=== PATIENT | female | born 1930 ===

== ENCOUNTER 2016-12-16 12:50 | Emergency (ER) | payer MEDICARE, MEDICAID ==
[2016-12-16 13:02] VITALS: BP 145/57; PULSE 68; RESP 18; TEMP 98.6; O2SAT 96; BMI 23.1
--- NOTE | 2016-12-16 13:31 | ED PDOC ---
Arrival/HPI - General Chief Complaint: Trauma Time Seen by Provider: 12/16/16 12:59 Historian: Patient, Family (Niece translates), Patient Transition Specialist - History of Present Illness Narrative History of Present Illness (Text): 12/16/16 13:29 A 86 year old female, whose past medical history includes near syncope, UTI, incisional hernia, and contusion of rib on right side, presents to the emergency department for falling in her bathroom 3 days ago. The patient lives alone and is accompanied by her niece who translates for her. The patient states she injured her left forearm and back. Since the fall she has been developing pain and a cough. The patient denies any chest pain, palpitations, nausea, vomiting, dysuria, or any other complaints at this time. Time/Duration: < week (x 3 days ) Symptom Onset: Sudden Symptom Course: Unchanged, Worsening Severity Level: Mild Activities at Onset: Light Context: Home Associated Symptoms (Text): 12/16/16 14:27 Mechanical fall in the bathroom 3 days ago with an injury to her left posterior lateral ribs and left forearm. No head trauma. No neck pain. No chest pain or dyspnea. No abdominal pain nausea or vomiting. No other extremity trauma. Past Medical History - Provider Review Nursing Documentation Reviewed: Yes - Infectious Disease Hx of Infectious Diseases: None - Cardiac Hx Cardiac Disorders: Yes Hx Hypertension: Yes Hx Pacemaker: Yes - Pulmonary Hx Respiratory Disorders: No - Neurological Hx Seizures: Yes - HEENT Hx HEENT Disorder: Yes Other/Comment: as per patient " surgery on R eye" - Renal Hx Renal Disorder: Yes Hx Kidney Stones: Yes - Endocrine/Metabolic Hx Endocrine Disorders: No - Hematological/Oncological Hx Blood Disorders: No - Integumentary Hx Dermatological Disorder: No - Musculoskeletal/Rheumatological Hx Arthritis: Yes Hx Gout: Yes Hx Osteoporosis: Yes Hx Rheumatoid Arthritis: Yes - Gastrointestinal Hx Gastrointestinal Disorders: No - Genitourinary/Gynecological Hx Genitourinary Disorders: No - Psychiatric Hx Psychophysiologic Disorder: No Hx Substance Use: No - Surgical History Hx Cholecystectomy: Yes - Anesthesia Hx Anesthesia: Yes Hx Anesthesia Reactions: Yes (nausea, vomiting) Hx Malignant Hyperthermia: No - Suicidal Assessment Feels Threatened In Home Enviroment: No Family/Social History - Physician Review Nursing Documentation Reviewed: Yes Family/Social History: No Known Family HX Smoking Status: Never Smoked Hx Alcohol Use: No Hx Substance Use: No Allergies/Home Meds Allergies/Adverse Reactions: Allergies No Known Allergies Allergy (Verified 12/16/16 13:02) Home Medications: Home Meds Medication Instructions Recorded Confirmed Clonazepam 0.5 mg PO BID 03/28/14 12/16/16 Zolpidem Tartrate [Zolpidem] 10 mg PO HS 03/28/14 12/16/16 Gabapentin 200 mg PO DAILY 01/29/15 12/16/16 Ibuprofen [Advil] 400 mg PO Q6 PRN 12/04/16 12/16/16 Allopurinol [Zyloprim] 100 mg PO DAILY 12/16/16 12/16/16 Dexlansoprazole [Dexilant] 60 mg PO DAILY 12/16/16 12/16/16 Review of Systems - Physician Review All systems were reviewed & negative as marked: Yes - Review of Systems Constitutional: Fatigue. absent: Fevers Respiratory: Cough. absent: SOB Cardiovascular: absent: Chest Pain Gastrointestinal: absent: Abdominal Pain, Nausea, Vomiting Genitourinary Female: absent: Dysuria Musculoskeletal: Other (injured left forearm and back from a fall. ) Neurological: absent: Headache, Dizziness Physical Exam Vital Signs Reviewed: Yes Vital Signs Temp Pulse Resp BP Pulse Ox 12/16/16 13:01 98.6 F 68 18 145/57 L 96 Temperature: Afebrile Blood Pressure: Normal Pulse: Regular Respiratory Rate: Normal Appearance: Positive for: Non-Toxic, Cachectic Pain Distress: None Mental Status: Positive for: other (Awake and alert) - Systems Exam Head: Present: Atraumatic, Normocephalic Pupils: Present: PERRL Extroacular Muscles: Present: EOMI Conjunctiva: Present: Normal Mouth: Present: Moist Mucous Membranes Neck: Present: Normal Range of Motion. No: MIDLINE TENDERNESS, Paraspinal Tenderness Respiratory/Chest: Present: Good Air Exchange, Decreased Breath Sounds, Rhonchi (left sided ), Tender to Palpation (Left posterior lateral rib tenderness with no crepitus and no skin changes). No: Respiratory Distress, Accessory Muscle Use Cardiovascular: Present: Regular Rate and Rhythm, Normal S1, S2. No: Murmurs Abdomen: Present: Normal Bowel Sounds. No: Tenderness, Distention, Peritoneal Signs Back: Present: Normal Inspection. No: CVA Tenderness, Midline Tenderness, Paraspinal Tenderness, Pain with Leg Raise Upper Extremity: Present: Normal ROM, Tenderness (left posterior lateral rib tenderness; no crepitus), Other (left forearm has superficial abrasion ulnarly) . No: Edema, Erythema Lower Extremity: Present: Normal Inspection. No: Edema Neurological: Present: GCS=15, CN II-XII Intact, Speech Normal, Motor Func Grossly Intact Skin: Present: Warm, Dry, Normal Color. No: Rashes Psychiatric: Present: Alert, Oriented x 3, Normal Insight, Normal Concentration Medical Decision Making ED Course and Treatment: 12/16/16 13:35 Impression: A 86 year old female with left forearm and back pain. Differential Diagnosis included but are not limited to: Plan: -- Chest X-ray -- Radiology: Forearm left -- Reassess and disposition Progress Notes: - RAD Interpretation Radiology Orders: 12/16/16 13:05 FOREARM LEFT [RAD] Stat RIBS LEFT & PA CHEST [RAD] Stat Left ribs and chest show no infiltrate effusion cardiomegaly pneumothorax fracture or dislocation. There is a pacemaker present. Left forearm shows no fracture or dislocation. Vp Lab: ED Physician - Scribe Statement The provider has reviewed the documentation as recorded by the Scribe Damaris Leach Provider Scribe Attestation: All medical record entries made by the Scribe were at my direction and personally dictated by me. I have reviewed the chart and agree that the record accurately reflects my personal performance of the history, physical exam, medical decision making, and the department course for this patient. I have also personally directed, reviewed, and agree with the discharge instructions and disposition. Disposition/Present on Arrival - Present on Arrival Any Indicators Present on Arrival: No History of DVT/PE: No History of Uncontrolled Diabetes: No Urinary Catheter: No History of Decub. Ulcer: No History Surgical Site Infection Following: None - Disposition Have Diagnosis and Disposition been Completed?: Yes Diagnosis: Chest wall contusion, Forearm abrasion Disposition: HOME/ ROUTINE Disposition Time: 14:31 Patient Plan: Discharge Condition: GOOD Discharge Instructions (ExitCare): Contusion in Adults (ED), Abrasion (ED), How to Use an Incentive Spirometer (ED) Prescriptions: Tramadol HCl [Ultram] 50 mg PO Q6 PRN #15 tab PRN Reason: Pain Forms: [employer] ([place])
--- NOTE | 2016-12-16 14:32 | RAD ---
PROCEDURE: Radiographs of the Chest and Left Ribs. HISTORY: trauma COMPARISON: 05/07/2015. TECHNIQUE: Frontal radiograph of the chest and multiple oblique radiographs of the left ribs were obtained. FINDINGS: LEFT RIBS: Evaluation somewhat limited by the presence of a permanent pacemaker module. There are old healed fractures of the left 4th and 5th ribs. There is no acute rib fracture identified. LUNGS: Clear. PLEURA: No pneumothorax or pleural fluid. CARDIOVASCULAR: Normal size heart. Permanent pacemaker noted. Question is raised as to possible hiatal hernia. OTHER FINDINGS: None. IMPRESSION: No acute rib fracture identified. Old fractures left 4th and 5th posterior ribs. Permanent pacemaker. Possible hiatal hernia.
--- NOTE | 2016-12-16 14:34 | RAD ---
PROCEDURE: Radiographs of the Left Forearm HISTORY: trauma COMPARISON: None available. TECHNIQUE: Frontal and lateral views obtained. FINDINGS: BONES: No fracture or destructive lesion. JOINT SPACES: Unremarkable. OTHER FINDINGS: None. IMPRESSION: Unremarkable radiographs of the left forearm.
== END 2016-12-16 14:49 | disposition home or self-care (01) ==
LOC: ED 12:50
DX: S20.212A Contusion of left front wall of thorax, initial encounter (principal); S50.812A Abrasion of left forearm, initial encounter; W18.30XA Fall on same level, unspecified, initial encounter; Y93.E8 Activity, other personal hygiene; Y92.002 Bathroom of unspecified non-institutional (private) residence as the place of occurrence of the external cause

== ENCOUNTER 2017-12-30 09:07 | Emergency (ER) | payer MEDICARE, MEDICAID ==
[2017-12-30 09:17] VITALS: BMI 24.7
--- NOTE | 2017-12-30 09:29 | ED PDOC ---
Arrival/HPI - General Chief Complaint: Trauma Time Seen by Provider: 12/30/17 09:10 Historian: Patient, Director External Communications - History of Present Illness Narrative History of Present Illness (Text): 12/30/17 09:29 87 year old Macanese speaking female, whose past medical history includes pacemaker, CKD, Seizures, Arthritis, hypertension, Cholecystectomy, near syncope, UTI, incisional hernia, and contusion of rib on right side, presents to the emergency department s/p trip and fall 6 days ago. Patient reports she tripped on her own feet and fell injuring her forehead and left eye. Patient denies any loss of consciousness and denies being on blood thinners. Patient has been able to walk without any difficulty. Patient just wanted to be tested and evaluated to make sure she is fine. Patient denies visual changes, fever, chills, chest pain, shortness of breath, nausea, vomiting, diarrhea, urinary symptoms, back pain, neck pain, headache, dizziness, or any other complaints. Director External Communications: KRYS Aparicio PMD: Dr. Kinjal Love 12/30/17 15:23 Time/Duration: Other (6 days) Symptom Onset: Sudden Symptom Course: Unchanged Activities at Onset: Light Context: Tripped Past Medical History - Provider Review Nursing Documentation Reviewed: Yes - Infectious Disease Hx of Infectious Diseases: None - Cardiac Hx Cardiac Disorders: Yes Hx Hypertension: Yes Hx Pacemaker: Yes Other/Comment: + pacemaker - Pulmonary Hx Respiratory Disorders: No - Neurological Hx Seizures: Yes - HEENT Hx HEENT Disorder: Yes Other/Comment: as per patient " surgery on R eye" - Renal Hx Renal Disorder: Yes Hx Kidney Stones: Yes - Endocrine/Metabolic Hx Endocrine Disorders: No - Hematological/Oncological Hx Blood Disorders: No - Integumentary Hx Dermatological Disorder: No - Musculoskeletal/Rheumatological Hx Arthritis: Yes Hx Gout: Yes Hx Osteoporosis: Yes Hx Rheumatoid Arthritis: Yes - Gastrointestinal Hx Gastrointestinal Disorders: No - Genitourinary/Gynecological Hx Genitourinary Disorders: No - Psychiatric Hx Psychophysiologic Disorder: No Hx Substance Use: No - Surgical History Hx Cholecystectomy: Yes Other/Comment: pacemaker - Anesthesia Hx Anesthesia: Yes Hx Anesthesia Reactions: Yes (nausea, vomiting) Hx Malignant Hyperthermia: No - Suicidal Assessment Feels Threatened In Home Enviroment: No Family/Social History - Physician Review Nursing Documentation Reviewed: Yes Family/Social History: No Known Family HX Smoking Status: Never Smoked Hx Alcohol Use: No Hx Substance Use: No Allergies/Home Meds Allergies/Adverse Reactions: Allergies No Known Allergies Allergy (Verified 12/16/16 13:02) Home Medications: Home Meds Medication Instructions Recorded Confirmed RX: Clonazepam 0.5 mg PO HS PRN 03/28/14 12/30/17 RX: Gabapentin 200 mg PO DAILY 01/29/15 12/30/17 RX: Allopurinol [Zyloprim] 100 mg PO DAILY 12/16/16 12/30/17 Fluticasone/Salmeterol 250/50 1 puff IH DAILY 12/30/17 12/30/17 [Advair Diskus 250/50] Memantine [Namenda] 1 tab PO DAILY 12/30/17 12/30/17 Montelukast [Singulair] 1 tab PO DAILY 12/30/17 12/30/17 RX: Famotidine [Pepcid] 1 tab PO DAILY 12/30/17 12/30/17 RX: amLODIPine [Norvasc] 5 mg PO DAILY 12/30/17 12/30/17 Review of Systems - Physician Review All systems were reviewed & negative as marked: Yes - Review of Systems Constitutional: absent: Fevers, Other (Chills) Eyes: absent: Vision Changes Respiratory: absent: SOB Cardiovascular: absent: Chest Pain Gastrointestinal: absent: Abdominal Pain, Diarrhea, Nausea, Vomiting Genitourinary Female: absent: Dysuria, Frequency, Hematuria Musculoskeletal: Other (forehead and left eye pain). absent: Back Pain, Neck Pain Neurological: absent: Headache, Dizziness Physical Exam Vital Signs Reviewed: Yes Temperature: Afebrile Blood Pressure: Normal Pulse: Regular Respiratory Rate: Normal Appearance: Positive for: Well-Appearing, Non-Toxic, Comfortable Pain Distress: None Mental Status: Positive for: Alert and Oriented X 3 - Systems Exam Head: Present: Atraumatic, Normocephalic, Tenderness (tender to palpation to the left eyebrow periorbital ridge), Contusion (Left periorbital contusion to the left eye). No: Swelling, Other (No step off) Pupils: Present: PERRL Extroacular Muscles: Present: EOMI Conjunctiva: Present: Normal Mouth: Present: Moist Mucous Membranes Neck: Present: Normal Range of Motion Respiratory/Chest: Present: Clear to Auscultation, Good Air Exchange. No: Respiratory Distress, Accessory Muscle Use Cardiovascular: Present: Regular Rate and Rhythm, Normal S1, S2. No: Murmurs Abdomen: No: Tenderness, Distention, Peritoneal Signs Back: Present: Normal Inspection Upper Extremity: Present: Normal Inspection. No: Cyanosis, Edema Lower Extremity: Present: Normal Inspection. No: Edema Neurological: Present: GCS=15, CN II-XII Intact, Speech Normal, Motor Func Grossly Intact, Normal Sensory Function, Gait Normal Skin: Present: Warm, Dry, Normal Color. No: Rashes Psychiatric: Present: Alert, Oriented x 3, Normal Insight, Normal Concentration Medical Decision Making ED Course and Treatment: 12/30/17 09:29 Impression: 87 year old female presents complaining of forehead and left eye discomfort s/p trip and fall 6 days ago. Plan: -- CT Head w/o Contrast -- CT Maxillofacial w/o contrast -- Reassess and disposition Prior Visits: Notes and results from previous visits were reviewed. Progress Notes: PROCEDURE: CT MAXILLOFACIAL BONES WITHOUT CONTRAST Dictator : Diego Rea MD Report Date : 12/30/2017 10:53:04 IMPRESSION: No evidence of fracture PROCEDURE: CT HEAD WITHOUT CONTRAST. Dictator : Diego Rea MD Report Date : 12/30/2017 10:50:28 IMPRESSION: No acute findings - Scribe Statement The provider has reviewed the documentation as recorded by the Scribe Chantel Dickens Provider Scribe Attestation: All medical record entries made by the Scribe were at my direction and personally dictated by me. I have reviewed the chart and agree that the record accurately reflects my personal performance of the history, physical exam, medical decision making, and the department course for this patient. I have also personally directed, reviewed, and agree with the discharge instructions and disposition.\\ Disposition/Present on Arrival - Present on Arrival Any Indicators Present on Arrival: No History of DVT/PE: No History of Uncontrolled Diabetes: No Urinary Catheter: No History of Decub. Ulcer: No History Surgical Site Infection Following: None - Disposition Have Diagnosis and Disposition been Completed?: Yes Diagnosis: Fall from slip, trip, or stumble, Periorbital contusion of left eye Disposition: HOME/ ROUTINE Disposition Time: 11:06 Patient Plan: Discharge Condition: GOOD Discharge Instructions (ExitCare): Preventing Falls in the Older Adult, Eye Contusion (DC) Print Language: ROMANIAN Additional Instructions: CARLYLE CRUMP, thank you for letting us take care of you today. Your provider was Veronica May MD and you were treated for FALL. The emergency medical care you received today was directed at your acute symptoms. If you were prescribed any medication, please fill it and take as directed. It may take several days for your symptoms to resolve. Return to the Emergency Department if your symptoms worsen, do not improve, or if you have any other problems. Tiene que hacer sridevi victor manuel con kendrick doctor en 1-2 moore. Vuelva a la emergencia si se siente peor. Please contact your doctor in 1-2 days for a follow up appointment. Bring any paperwork you were given at discharge with you along with any medications you are taking to your follow up visit. Our treatment cannot replace ongoing medical care by a primary care provider outside of the emergency department. Thank you for allowing the [facility] team to be part of your care today. Referrals: Kate Mccarthy MD [Family Provider] - Follow up with primary Forms: [employer] (Estonian), [facility] (Macanese)
[2017-12-30 09:32] VITALS: RESP 18; TEMP 97.8
--- NOTE | 2017-12-30 10:54 | CT ---
Date of service: 12/30/2017 PROCEDURE: CT HEAD WITHOUT CONTRAST. HISTORY: fall head trauma COMPARISON: None available. TECHNIQUE: Axial computed tomography images were obtained through the head/brain without intravenous contrast. Radiation dose: Total exam DLP = 754 mGy-cm. This CT exam was performed using one or more of the following dose reduction techniques: Automated exposure control, adjustment of the mA and/or kV according to patient size, and/or use of iterative reconstruction technique. FINDINGS: HEMORRHAGE: No intracranial hemorrhage. BRAIN: No mass effect or edema. No atrophy or chronic microvascular ischemic changes. VENTRICLES: Unremarkable. No hydrocephalus. CALVARIUM: Unremarkable. PARANASAL SINUSES: Unremarkable as visualized. No significant inflammatory changes. MASTOID AIR CELLS: Unremarkable as visualized. No inflammatory changes. OTHER FINDINGS: None. IMPRESSION: No acute findings
--- NOTE | 2017-12-30 10:56 | CT ---
Date of service: 12/30/2017 PROCEDURE: CT MAXILLOFACIAL BONES WITHOUT CONTRAST HISTORY: facial trauma COMPARISON: None available. TECHNIQUE: Contiguous axial CT images of the maxillofacial bones were obtained. Coronal and sagittal reformats were generated. Radiation dose: Total exam DLP = 673.47 mGy-cm. This CT exam was performed using one or more of the following dose reduction techniques: Automated exposure control, adjustment of the mA and/or kV according to patient size, and/or use of iterative reconstruction technique. FINDINGS: NASAL BONES: Unremarkable. ORBITS: Unremarkable. PARANASAL SINUSES/ MASTOIDS: Clear. MAXILLA: Unremarkable. MANDIBLE/ TEMPOROMANDIBULAR JOINTS: Unremarkable. SKULL BASE: Unremarkable. TEMPORAL BONES: Middle ears and mastoid grossly unremarkable. OTHER FINDINGS: None. IMPRESSION: No evidence of fracture
[2017-12-30 11:04] VITALS: BP 121/69; PULSE 64; O2SAT 98
== END 2017-12-30 11:32 | disposition home or self-care (01) ==
LOC: ED 09:07
DX: S05.12XA Contusion of eyeball and orbital tissues, left eye, initial encounter (principal); W01.0XXA Fall on same level from slipping, tripping and stumbling without subsequent striking against object, initial encounter; Y92.9 Unspecified place or not applicable

== ENCOUNTER 2018-08-11 10:26 | Emergency (ER) | payer MEDICAID, MEDICARE ==
[2018-08-11 10:27] VITALS: BMI 24.7
--- NOTE | 2018-08-11 12:32 | ED PDOC ---
Arrival/HPI - General Chief Complaint: Fever Time Seen by Provider: 08/11/18 11:20 Historian: Patient - History of Present Illness Narrative History of Present Illness (Text): 08/11/18 12:36 A 87 year old female, whose past medical history includes hypertension, seizure disorder, arthritis, rheumatoid arthritis, and osteoporosis, presents to the emergency department complaining of non-productive cough and left-side facial pain. Patient reports taking excedrin, however had no relief of symptoms. Notes experiencing subjective fever yesterday, but no cough, and throat pain. Patient denies any other complaints at this time. Also, patient mentions returning to the [facility] after a 2-week trip in [place]. PMD: Dr. Kate Mccarthy Past Medical History - Provider Review Nursing Documentation Reviewed: Yes - Infectious Disease Hx of Infectious Diseases: None - Cardiac Hx Cardiac Disorders: Yes Hx Hypertension: Yes Hx Pacemaker: Yes Other/Comment: + pacemaker - Pulmonary Hx Respiratory Disorders: No - Neurological Hx Seizures: Yes - HEENT Hx HEENT Disorder: Yes Other/Comment: as per patient " surgery on R eye" - Renal Hx Renal Disorder: Yes Hx Kidney Stones: Yes - Endocrine/Metabolic Hx Endocrine Disorders: No - Hematological/Oncological Hx Blood Disorders: No - Integumentary Hx Dermatological Disorder: No - Musculoskeletal/Rheumatological Hx Arthritis: Yes Hx Gout: Yes Hx Osteoporosis: Yes Hx Rheumatoid Arthritis: Yes - Gastrointestinal Hx Gastrointestinal Disorders: No - Genitourinary/Gynecological Hx Genitourinary Disorders: No - Psychiatric Hx Psychophysiologic Disorder: No Hx Substance Use: No - Surgical History Hx Cholecystectomy: Yes Other/Comment: pacemaker - Anesthesia Hx Anesthesia: Yes Hx Anesthesia Reactions: Yes (nausea, vomiting) Hx Malignant Hyperthermia: No - Suicidal Assessment Feels Threatened In Home Enviroment: No Family/Social History - Physician Review Nursing Documentation Reviewed: Yes Family/Social History: No Known Family HX Smoking Status: Never Smoked Hx Alcohol Use: No Hx Substance Use: No Allergies/Home Meds Allergies/Adverse Reactions: Allergies No Known Allergies Allergy (Verified 08/11/18 11:17) Home Medications: Home Meds Medication Instructions Recorded Confirmed Clonazepam 0.5 mg PO HS PRN 03/28/14 12/30/17 Gabapentin 200 mg PO DAILY 01/29/15 12/30/17 Allopurinol [Zyloprim] 100 mg PO DAILY 12/16/16 12/30/17 Famotidine [Pepcid] 1 tab PO DAILY 12/30/17 12/30/17 Fluticasone/Salmeterol 250/50 1 puff IH DAILY 12/30/17 12/30/17 [Advair Diskus 250/50] Memantine [Namenda] 1 tab PO DAILY 12/30/17 12/30/17 Montelukast [Singulair] 1 tab PO DAILY 12/30/17 12/30/17 amLODIPine [Norvasc] 5 mg PO DAILY 12/30/17 12/30/17 Review of Systems - Physician Review All systems were reviewed & negative as marked: Yes - Review of Systems Constitutional: Fevers (subjective fever yesterday) ENT: Other (throat pain) Respiratory: Cough (non-productive) Physical Exam Vital Signs Reviewed: Yes Vital Signs Temp Pulse Resp BP Pulse Ox 08/11/18 11:15 97.9 F 64 18 125/77 96 Temperature: Afebrile Blood Pressure: Normal Pulse: Regular Respiratory Rate: Normal Appearance: Positive for: Well-Appearing, Non-Toxic, Comfortable Pain Distress: None Mental Status: Positive for: Alert and Oriented X 3 Medical Decision Making ED Course and Treatment: 08/11/18 12:45 Impression: 87 year old female with non-productive cough, throat pain, and left-side facial pain. Plan: -- Chest X-ray -- Labs -- Throat Culture -- Rapid Strep Test -- Robitussin -- Toradol -- IV Fluids -- Magic Mouthwash -- Reassess and disposition Progress Notes: - RAD Interpretation Radiology Orders: 08/11/18 11:31 CHEST PORTABLE [RAD] Stat - Scribe Statement The provider has reviewed the documentation as recorded by the Jake Bardales Provider Scribe Attestation: All medical record entries made by the Scribteresa were at my direction and personally dictated by me. I have reviewed the chart and agree that the record accurately reflects my personal performance of the history, physical exam, medical decision making, and the department course for this patient. I have also personally directed, reviewed, and agree with the discharge instructions and disposition. Disposition/Present on Arrival - Present on Arrival Any Indicators Present on Arrival: No History of DVT/PE: No History of Uncontrolled Diabetes: No Urinary Catheter: No History of Decub. Ulcer: No History Surgical Site Infection Following: None - Disposition Have Diagnosis and Disposition been Completed?: Yes Diagnosis: Pharyngitis, Facial pain Disposition: HOME/ ROUTINE Disposition Time: 13:57 Patient Plan: Discharge Condition: IMPROVED Discharge Instructions (ExitCare): Viral Pharyngitis (DC) Print Language: SAMMARINESE Additional Instructions: All medical record entries made by the Scribe were at my direction and personally dictated by me. I have reviewed the chart and agree that the record accurately reflects my personal performance of the history, physical exam, medical decision making, and the department course for this patient. I have also personally directed, reviewed, and agree with the discharge instructions and disposition Please follow up with your PCP. Prescriptions: guaiFENesin/Codeine [Codeine/Guaifenesin 10 MG/5 Ml-100 MG/5 Ml 5] 10 ml PO Q4H #20 udc Mag&Al/Simet/Diphen/Lido [First Magic Mouthwash] 30 ml MM Q2H #20 kit Naproxen 500 mg PO BID #12 tab Referrals: Kate Mccarthy MD [Family Provider] - Follow up with primary Forms: [employer] (Kosovan)
[2018-08-11] MEDS ORDERED: Sodium Chloride 0.9% 1,000 ML IV STA (12:34)
[2018-08-11] MEDS ORDERED: Aluminum Hydroxide/Magnesium 30 ML, DiphenhydrAMINE 75 MG, Lidocaine 2% Viscous 30 ML PO PRN (12:34)
[2018-08-11] MEDS ORDERED: guaiFENesin-Codeine 100-10mg/5ml Syrup (5 ml) UD PO STA (12:35)
[2018-08-11 13:04] LABS: BASO # 0.03 K/mm3 (0.0-2.0); BASO % 0.3 % (0.0-3.0); EOS # 0.3 (0.0-0.7); EOS % 2.9 % (1.5-5.0); HEMOGLOBIN 11.4 g/dL (12.0-16.0); LYMPH # 3.6 (1.2-3.4); LYMPH % 33.4 % (22.0-35.0); MEAN CELL VOLUME 92.7 fl (80.0-105.0); MEAN CORPUSCULAR HEMOGLOBIN 30.6 pg (25.0-35.0); MEAN PLATELET VOLUME 10.8 fl (7.0-11.0); MONO # 0.9 (0.1-0.6); MONO % 8.1 % (1.0-6.0); RBC 3.72 10^6/uL (3.5-6.1); WHITE BLOOD COUNT 10.6 10^3/uL (4.5-11.0)
[2018-08-11 13:13] LABS: ALB/GLOB RATIO 1.1 (1.1-1.8); ALBUMIN 3.7 g/dL (3.0-4.8); CALCIUM 9.7 mg/dL (8.4-10.5)
[2018-08-11 14:07] VITALS: BP 153/72; PULSE 83; RESP 16; O2SAT 94
[2018-08-11 14:20] VITALS: TEMP 98
--- NOTE | 2018-08-11 15:23 | RAD ---
Date of service: 08/11/2018 HISTORY: sob COMPARISON: 12/16/2016 TECHNIQUE: 1 view obtained. FINDINGS: LUNGS: No active pulmonary disease. PLEURA: No significant pleural effusion identified, no pneumothorax apparent. CARDIOVASCULAR: No aortic atherosclerotic calcification present. Aortic tortuosity Normal cardiac size. No pulmonary vascular congestion. OSSEOUS STRUCTURES: No significant abnormalities. VISUALIZED UPPER ABDOMEN: Normal. OTHER FINDINGS: Single lead pacemaker IMPRESSION: No active disease.
== END 2018-08-11 14:18 | disposition home or self-care (01) ==
LOC: ED 10:26
DX: R51 Headache (principal); J02.9 Acute pharyngitis, unspecified; I10 Essential (primary) hypertension; G40.909 Epilepsy, unspecified, not intractable, without status epilepticus; M06.9 Rheumatoid arthritis, unspecified; M81.0 Age-related osteoporosis without current pathological fracture; Z95.0 Presence of cardiac pacemaker
CPT/HCPCS: 71045; 80053; 85025; 87070; 87430; 96374; 99284; J1885; J7030